=== PATIENT | male | born 2005 | race Caucasian/White ===

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

== ENCOUNTER 2024-05-19 12:03 | Emergency (ER) | payer BC, OTHER ==
[2024-05-19] MEDS ORDERED: Naloxone 0.4 MG/ML SDV IVPUSH PRN (12:52)
[2024-05-19] MEDS: HYDROmorphone 0.5 MG/0.5 ML Syringe IVPUSH ONE (13:17)
[2024-05-19] MEDS: Ketorolac 30 MG/ML SDV IVPUSH ONE (13:58)
[2024-05-19] MEDS: Lidocaine 1% 10 ML MDV INJECT ONE (15:17)
== END 2024-05-19 15:52 | disposition home or self-care (01) ==
LOC: JD.ED 12:03
DX: S61.412A Laceration without foreign body of left hand, initial encounter (principal); W19.XXXA Unspecified fall, initial encounter; Y99.0 Civilian activity done for income or pay; Y92.89 Other specified places as the place of occurrence of the external cause
CPT/HCPCS: 12001; 73110; 73120; 96374; 96375; 99283; J1170; J1885; J3490